=== PATIENT | male | born 1995 | race African-American/Black ===

== ENCOUNTER 2016-12-13 19:12 | Inpatient (IN) | payer MEDICAID ==
[~2016-12-13] VITALS: Ht 190.5 cm; Wt 134.0 kg
[~2016-12-13 19:12] MED LIST: BENZ1TAB10 PO; CLOZ100 PO; DIVA500T69 PO; FLUO-191 PO; TOPI100 PO
[2016-12-13 19:51] LABS: BASOPHILS % (AUTO) 0.6 % (0.0-2.0); EOSINOPHILS % (AUTO) 2.4 % (1.0-6.0); HEMATOCRIT 46.8 % (41-53); HEMOGLOBIN 15.2 g/dL (13.5-17.5); LYMPHOCYTES # (AUTO) 3.6 K/uL (1.0-4.8); LYMPHOCYTES % (AUTO) 34.4 % (22.0-44.0); MEAN CORPUSCULAR HEMOGLOBIN 29.1 pg (26.0-34.0); MEAN CORPUSCULAR HGB CONC 32.4 G/dL (31.0-37.0); MEAN CORPUSCULAR VOLUME 90 fL (80-100); MONOCYTES # (AUTO) 1.2 K/uL (0.1-1.0); MONOCYTES % (AUTO) 11.7 % (2.0-9.0); NEUTROPHILS # (AUTO) 5.3 K/uL (1.8-7.7); NEUTROPHILS % (AUTO) 50.9 % (40.0-70.0); PLATELET COUNT (AUTO) 435 K/uL (150-450); RED BLOOD CELL COUNT(AUTO) 5.22 MIL/uL (4.50-5.90); RED CELL DISTRIBUTION WIDTH 14.4 % (11.5-14.5); WHITE BLOOD COUNT (AUTO) 10.5 K/uL (4.5-11.0)
[2016-12-13 20:05] LABS: ANION GAP 9 mmol/L (8-16); CALCIUM, TOTAL 9.5 mg/dL (8.8-10.5); CARBON DIOXIDE 28 mmol/L (22-29); CHLORIDE 105 mmol/L (98-107); CREATININE 0.97 mg/dL (0.60-1.30); GLOMERULAR FILTR. RATE CALC > 60 mL/min (>60); POTASSIUM 3.4 mmol/L (3.5-5.1); SODIUM SERUM 142 mmol/L (136-145); UREA NITROGEN, BLOOD 13 mg/dL (7-18)
[2016-12-13 20:11] LABS: ALANINE AMINOTRANSFERASE 44 U/L (12-78); ALBUMIN 3.5 g/dL (3.4-5.0); ASPARTATE AMINOTRANSFERASE 32 U/L (15-37); BILIRUBIN,TOTAL 0.2 mg/dL (0.1-1.0); TOTAL PROTEIN, SERUM 7.5 g/dL (6.4-8.2); VALPROIC ACID 3 mcg/mL (50-100)
[2016-12-13] MEDS ORDERED: DiphenhydrAMINE HCL 50 MG/ML VIAL IM ONE (22:30)
[2016-12-13] MEDS ORDERED: LORazepam 2 MG/ML VIAL IM ONE (22:30)
[2016-12-14] MEDS ORDERED: QUEtiapine FUMARATE 100 MG TABLET PO PRN (01:30)
[2016-12-14] MEDS: TOPIRAMATE 100 MG TABLET PO SCH ×2 (08:36→16:24)
[2016-12-14] MEDS: FLUoxetine HCL 20 MG CAPSULE PO SCH (08:36)
[2016-12-14] MEDS: BENZTROPINE MESYLATE 1 MG TABLET PO SCH ×2 (08:36→20:24)
[2016-12-14] MEDS ORDERED: INFLUENZA VIRUS VACCINE QVS 2016-17 (3YR+)/PF 60 MCG/0.5 ML SYRINGE IM ONE (13:30)
[2016-12-14] MEDS ORDERED: PNEUMOCOCCAL VACCINE POLYVALENT 0.5 ML VIAL [PPSV23] IM ONE (13:30)
[2016-12-14 13:34] VITALS: BP 121/84
[2016-12-14] MEDS ORDERED: HYDROCORTISONE 0.5% 30 GM CREAM TP PRN (14:45)
[2016-12-14 18:38] VITALS: BP 125/86
[2016-12-14] MEDS: LORazepam 2 MG TABLET PO PRN (18:53)
[2016-12-14] MEDS: DIVALPROEX SODIUM 500 MG ER TABLET PO SCH (20:24)
[2016-12-14] MEDS: CloZAPine 100 MG TABLET PO SCH (20:24)
[2016-12-15 07:24] LABS: BASOPHILS # (AUTO) 0.06 K/uL (0.00-0.20); BASOPHILS % (AUTO) 0.8 % (0.0-2.0); EOSINOPHILS % (AUTO) 4.37 % (1.0-6.0); HEMATOCRIT 40.7 % (41-53); HEMOGLOBIN 13.5 g/dL (13.5-17.5); LYMPHOCYTES # (AUTO) 2.7 K/uL (1.0-4.8); MEAN CORPUSCULAR HEMOGLOBIN 29.6 pg (26.0-34.0); MEAN CORPUSCULAR HGB CONC 33.2 G/dL (31.0-37.0); MEAN CORPUSCULAR VOLUME 89 fL (80-100); MONOCYTES # (AUTO) 0.7 K/uL (0.1-1.0); MONOCYTES % (AUTO) 10.3 % (2.0-9.0); NEUTROPHILS # (AUTO) 3.1 K/uL (1.8-7.7); NEUTROPHILS % (AUTO) 45.6 % (40.0-70.0); PLATELET COUNT (AUTO) 337 K/uL (150-450); RED BLOOD CELL COUNT(AUTO) 4.58 MIL/uL (4.50-5.90); RED CELL DISTRIBUTION WIDTH 14.3 % (11.5-14.5); WHITE BLOOD COUNT (AUTO) 6.9 K/uL (4.5-11.0)
[2016-12-15 08:00] VITALS: BP 128/87
[2016-12-15] MEDS ORDERED: PETROLATUM,WHITE 71 GM JELLY TP PRN (08:15)
[2016-12-15] MEDS ORDERED: CloNIDine HCL 0.1 MG TABLET PO PRN (08:15)
[2016-12-15] MEDS ORDERED: POTASSIUM CHLORIDE 20 MEQ ER TABLET PO ONE (08:15)
[2016-12-15] MEDS ORDERED: IBUPROFEN 600 MG TABLET PO PRN (08:15)
[2016-12-15] MEDS ORDERED: ONDANSETRON HCL 4 MG TABLET PO PRN (08:15)
[2016-12-15] MEDS ORDERED: ALBUTEROL SULFATE HFA 90 MCG/PUFF 8 GM INHALER IH PRN (08:15)
[2016-12-15] MEDS ORDERED: MAG HYDROX/AL HYDROX/SIMETH ES 30 ML SUSPENSION UDCUP PO PRN (08:15)
[2016-12-15] MEDS ORDERED: ACETAMINOPHEN 325 MG TABLET PO PRN (08:15)
[2016-12-15] MEDS ORDERED: BACITRACIN 28.4 GM OINTMENT TP PRN (08:15)
[2016-12-15] MEDS ORDERED: MAGNESIUM HYDROXIDE SUSPENSION 30 ML UDCUP PO PRN (08:15)
[2016-12-15] MEDS ORDERED: BENZOCAINE/MENTHOL LOZENGE [8 LOZENGES/PACKET] MM PRN (08:15)
[2016-12-15] MEDS ORDERED: LOPERAMIDE HCL 2 MG CAPSULE PO PRN (08:15)
[2016-12-15] MEDS: FLUoxetine HCL 20 MG CAPSULE PO SCH (09:35)
[2016-12-15] MEDS: BENZTROPINE MESYLATE 1 MG TABLET PO SCH ×2 (09:35→20:28)
[2016-12-15] MEDS: TOPIRAMATE 100 MG TABLET PO SCH ×2 (09:36→17:40)
[2016-12-15] MEDS: CloZAPine 100 MG TABLET PO SCH (20:27)
[2016-12-15] MEDS: DIVALPROEX SODIUM 500 MG ER TABLET PO SCH (20:27)
[2016-12-16 07:20] LABS: CHOL/HDL RATIO 4.6 (4.2-7.3); POTASSIUM 3.6 mmol/L (3.5-5.1); THYROID STIMULATING HORMONE 0.38 uIU/mL (0.36-3.74)
[2016-12-16 08:00] VITALS: BP 128/74
[2016-12-16] MEDS: FLUoxetine HCL 20 MG CAPSULE PO SCH (09:18)
[2016-12-16] MEDS: TOPIRAMATE 100 MG TABLET PO SCH ×2 (09:19→16:30)
[2016-12-16] MEDS: BENZTROPINE MESYLATE 1 MG TABLET PO SCH ×2 (09:19→20:34)
[2016-12-16 16:00] VITALS: BP 113/85
[2016-12-16] MEDS: DIVALPROEX SODIUM 500 MG ER TABLET PO SCH (20:34)
[2016-12-16] MEDS: CloZAPine 100 MG TABLET PO SCH (20:34)
[2016-12-17 08:37] VITALS: BP 116/65
[2016-12-17] MEDS: FLUoxetine HCL 20 MG CAPSULE PO SCH (09:56)
[2016-12-17] MEDS: BENZTROPINE MESYLATE 1 MG TABLET PO SCH ×2 (09:56→20:18)
[2016-12-17] MEDS: TOPIRAMATE 100 MG TABLET PO SCH ×2 (09:57→16:24)
[2016-12-17 16:00] VITALS: BP 127/71
[2016-12-17] MEDS: CloZAPine 100 MG TABLET PO SCH (20:18)
[2016-12-17] MEDS: DIVALPROEX SODIUM 500 MG ER TABLET PO SCH (20:20)
[2016-12-18 08:00] VITALS: BP 126/73
[2016-12-18] MEDS: FLUoxetine HCL 20 MG CAPSULE PO SCH (08:49)
[2016-12-18] MEDS: BENZTROPINE MESYLATE 1 MG TABLET PO SCH ×2 (08:49→21:59)
[2016-12-18] MEDS: TOPIRAMATE 100 MG TABLET PO SCH ×2 (08:50→16:08)
[2016-12-18 16:00] VITALS: BP 129/78
[2016-12-18] MEDS: DIVALPROEX SODIUM 500 MG ER TABLET PO SCH (21:59)
[2016-12-18] MEDS: CloZAPine 100 MG TABLET PO SCH (21:59)
[2016-12-19] MEDS: BENZTROPINE MESYLATE 1 MG TABLET PO SCH ×2 (09:28→20:16)
[2016-12-19] MEDS: FLUoxetine HCL 20 MG CAPSULE PO SCH (09:29)
[2016-12-19] MEDS: TOPIRAMATE 100 MG TABLET PO SCH ×2 (09:29→17:14)
[2016-12-19] MEDS: NALTREXONE HCL 50 MG TABLET PO SCH (09:29)
[2016-12-19 11:40] VITALS: BP 126/70
[2016-12-19 16:52] VITALS: BP 126/65
[2016-12-19] MEDS: LORazepam 2 MG TABLET PO PRN (19:01)
[2016-12-19] MEDS: CloZAPine 100 MG TABLET PO SCH (20:16)
[2016-12-19] MEDS: DIVALPROEX SODIUM 500 MG ER TABLET PO SCH (20:16)
[2016-12-20] MEDS: NALTREXONE HCL 50 MG TABLET PO SCH (11:37)
[2016-12-20] MEDS: TOPIRAMATE 100 MG TABLET PO SCH ×2 (11:37→16:16)
[2016-12-20] MEDS: BENZTROPINE MESYLATE 1 MG TABLET PO SCH ×2 (11:37→20:07)
[2016-12-20] MEDS: FLUoxetine HCL 20 MG CAPSULE PO SCH (11:38)
[2016-12-20 17:02] VITALS: BP 102/58
[2016-12-20] MEDS: DIVALPROEX SODIUM 500 MG ER TABLET PO SCH (20:06)
[2016-12-20] MEDS: CloZAPine 100 MG TABLET PO SCH (20:07)
[2016-12-20] MEDS: ZOLPIDEM TARTRATE 10 MG TABLET PO PRN (23:37)
[2016-12-20] MEDS: LORazepam 2 MG TABLET PO PRN (23:38)
[2016-12-21] MEDS: FLUoxetine HCL 20 MG CAPSULE PO SCH (08:55)
[2016-12-21] MEDS: BENZTROPINE MESYLATE 1 MG TABLET PO SCH ×2 (08:55→21:32)
[2016-12-21] MEDS: NALTREXONE HCL 50 MG TABLET PO SCH (08:55)
[2016-12-21] MEDS: TOPIRAMATE 100 MG TABLET PO SCH ×2 (08:55→17:30)
[2016-12-21] MEDS: LORazepam 2 MG TABLET PO PRN (08:58)
[2016-12-21 09:26] VITALS: BP 126/67
[2016-12-21 16:11] VITALS: BP 129/72
[2016-12-21] MEDS: CloZAPine 100 MG TABLET PO SCH (21:31)
[2016-12-21] MEDS: DIVALPROEX SODIUM 500 MG ER TABLET PO SCH (21:32)
[2016-12-22 08:42] VITALS: BP 132/95
[2016-12-22] MEDS: TOPIRAMATE 100 MG TABLET PO SCH ×2 (09:49→16:34)
[2016-12-22] MEDS: NALTREXONE HCL 50 MG TABLET PO SCH (09:50)
[2016-12-22] MEDS: BENZTROPINE MESYLATE 1 MG TABLET PO SCH ×2 (09:50→21:27)
[2016-12-22] MEDS: FLUoxetine HCL 20 MG CAPSULE PO SCH (09:50)
[2016-12-22 16:00] VITALS: BP 126/90
[2016-12-22] MEDS: DIVALPROEX SODIUM 500 MG ER TABLET PO SCH (21:27)
[2016-12-22] MEDS: CloZAPine 100 MG TABLET PO SCH (21:27)
[2016-12-22] MEDS: ZOLPIDEM TARTRATE 10 MG TABLET PO PRN (23:00)
[2016-12-23] MEDS: FLUoxetine HCL 20 MG CAPSULE PO SCH (08:18)
[2016-12-23] MEDS: TOPIRAMATE 100 MG TABLET PO SCH ×2 (08:19→18:23)
[2016-12-23] MEDS: NALTREXONE HCL 50 MG TABLET PO SCH (08:19)
[2016-12-23] MEDS: BENZTROPINE MESYLATE 1 MG TABLET PO SCH ×2 (08:19→20:54)
[2016-12-23 08:41] VITALS: BP 119/74
[2016-12-23 14:46] LABS: CLOZAPINE 702 ng/mL (350-650); CLOZAPINE & NORCLOZAPINE 845 ng/mL; NORCLOZAPINE 143 ng/mL (Not Estab.)
[2016-12-23] MEDS ORDERED: TOPI100 PO (15:40)
[2016-12-23] MEDS ORDERED: BENZ1TAB10 PO (15:40)
[2016-12-23] MEDS ORDERED: CLOZ100 PO (15:40)
[2016-12-23] MEDS ORDERED: FLUO-191 PO (15:40)
[2016-12-23] MEDS ORDERED: NALT50 PO (15:40)
[2016-12-23] MEDS ORDERED: DIVA500T52 PO (15:40)
[2016-12-23] MEDS: DIVALPROEX SODIUM 500 MG ER TABLET PO SCH (20:54)
[2016-12-23] MEDS: CloZAPine 100 MG TABLET PO SCH (20:54)
[2016-12-24 08:30] VITALS: BP 136/76
[2016-12-24] MEDS: NALTREXONE HCL 50 MG TABLET PO SCH (09:18)
[2016-12-24] MEDS: TOPIRAMATE 100 MG TABLET PO SCH (09:18)
[2016-12-24] MEDS: FLUoxetine HCL 20 MG CAPSULE PO SCH (09:18)
[2016-12-24] MEDS: BENZTROPINE MESYLATE 1 MG TABLET PO SCH (09:18)
[2016-12-25 12:36] LABS: FLUOXETINE (PROZAC) LEVEL 320 ng/mL (91-302); NORFLUOXETINE LEVEL 146 ng/mL (72-258)
== END 2016-12-24 14:06 | disposition home or self-care (01) | DRG 750 ==
LOC: EMS 19:14 → 3EI 12-14 11:57 → 3EC 12-14 12:28
PROVIDERS: ATTEND Psychiatry & Neurology Psychiatry
DX: F25.0 Schizoaffective disorder, bipolar type (principal); R45.851 Suicidal ideations; R45.850 Homicidal ideations; I10 Essential (primary) hypertension; F17.210 Nicotine dependence, cigarettes, uncomplicated; L20.9 Atopic dermatitis, unspecified; K59.00 Constipation, unspecified; F15.10 Other stimulant abuse, uncomplicated; R45.87 Impulsiveness; F12.90 Cannabis use, unspecified, uncomplicated; E87.6 Hypokalemia; E78.00 Pure hypercholesterolemia, unspecified; E66.9 Obesity, unspecified; Z91.19 Patient's noncompliance with other medical treatment and regimen; Z91.013 Allergy to seafood; Z91.018 Allergy to other foods; Z79.899 Other long term (current) drug therapy; Z88.8 Allergy status to other drugs, medicaments and biological substances; Z98.890 Other specified postprocedural states; Z71.6 Tobacco abuse counseling; Z68.36 Body mass index [BMI] 36.0-36.9, adult; Z28.21 Immunization not carried out because of patient refusal
CPT/HCPCS: 80159; 80332; 82306; 84132; 84443; 96372; 99285; 99406; G0480; J1200; J2060

== ENCOUNTER 2016-12-24 18:59 | Inpatient (IN) | payer MEDICAID ==
[~2016-12-24] VITALS: Ht 190.5 cm; Wt 146.7 kg
[~2016-12-24 18:59] MED LIST changes: +DIVA500T52 PO; +NALT50 PO
[2016-12-24 19:44] LABS: BASOPHILS % (AUTO) 0.6 % (0.0-2.0); EOSINOPHILS % (AUTO) 0.3 % (1.0-6.0); HEMATOCRIT 43.3 % (41-53); LYMPHOCYTES # (AUTO) 2.2 K/uL (1.0-4.8); LYMPHOCYTES % (AUTO) 24.1 % (22.0-44.0); MEAN CORPUSCULAR HEMOGLOBIN 28.7 pg (26.0-34.0); MEAN CORPUSCULAR HGB CONC 32.2 G/dL (31.0-37.0); MEAN CORPUSCULAR VOLUME 89 fL (80-100); MONOCYTES # (AUTO) 0.7 K/uL (0.1-1.0); MONOCYTES % (AUTO) 7.3 % (2.0-9.0); NEUTROPHILS # (AUTO) 6.1 K/uL (1.8-7.7); NEUTROPHILS % (AUTO) 67.7 % (40.0-70.0); PLATELET COUNT (AUTO) 305 K/uL (150-450); RED BLOOD CELL COUNT(AUTO) 4.86 MIL/uL (4.50-5.90); RED CELL DISTRIBUTION WIDTH 13.5 % (11.5-14.5)
[2016-12-24 19:50] LABS: ANION GAP 13 mmol/L (8-16); CARBON DIOXIDE 22 mmol/L (22-29); CHLORIDE 104 mmol/L (98-107); CREATININE 0.98 mg/dL (0.60-1.30); GLOMERULAR FILTR. RATE CALC > 60 mL/min (>60); POTASSIUM 4.1 mmol/L (3.5-5.1); SODIUM SERUM 139 mmol/L (136-145); UREA NITROGEN, BLOOD 12 mg/dL (7-18)
[2016-12-24 19:51] LABS: CALCIUM, TOTAL 9.2 mg/dL (8.8-10.5)
[2016-12-24 19:57] LABS: ALANINE AMINOTRANSFERASE 32 U/L (12-78); ALBUMIN 3.7 g/dL (3.4-5.0); ASPARTATE AMINOTRANSFERASE 23 U/L (15-37); BILIRUBIN,TOTAL 0.2 mg/dL (0.1-1.0); TOTAL PROTEIN, SERUM 7.6 g/dL (6.4-8.2); VALPROIC ACID 94 mcg/mL (50-100)
[2016-12-24] MEDS ORDERED: LORazepam 2 MG/ML VIAL IM ONE (20:45)
[2016-12-24] MEDS ORDERED: DiphenhydrAMINE HCL 50 MG/ML VIAL IM ONE (20:45)
[2016-12-24] MEDS ORDERED: ZIPRASIDONE MESYLATE 20 MG/VIAL IM ONE (20:45)
[2016-12-24] MEDS ORDERED: CloZAPine 100 MG TABLET PO SCH (21:00)
[2016-12-24] MEDS: DIVALPROEX SODIUM 500 MG ER TABLET PO SCH (21:36)
[2016-12-24] MEDS: TOPIRAMATE 100 MG TABLET PO SCH (21:36)
[2016-12-24 21:54] LABS: APPEARANCE,URINE CLEAR (CLEAR); GLUCOSE, URINE (UA) NEGATIVE (NEGATIVE); KETONES,URINE NEGATIVE (NEGATIVE); LEUKOCYTE ESTERASE ,URINE NEGATIVE (NEGATIVE); OCCULT BLOOD,URINE NEGATIVE (NEGATIVE); PH,URINE 6.5 (5.0-8.0); PROTEIN,URINE NEGATIVE (NEGATIVE)
[2016-12-24 21:57] LABS: ADD UA MICROSCOPIC NO
[2016-12-24 23:21] VITALS: BP 126/85
[2016-12-24] MEDS ORDERED: PNEUMOCOCCAL VACCINE POLYVALENT 0.5 ML VIAL [PPSV23] IM ONE (23:45)
[2016-12-25 08:54] VITALS: BP 117/63
[2016-12-25] MEDS ORDERED: BENZOCAINE/MENTHOL LOZENGE [8 LOZENGES/PACKET] MM PRN (09:30)
[2016-12-25] MEDS ORDERED: ONDANSETRON HCL 4 MG TABLET PO PRN (09:30)
[2016-12-25] MEDS ORDERED: MAGNESIUM HYDROXIDE SUSPENSION 30 ML UDCUP PO PRN (09:30)
[2016-12-25] MEDS ORDERED: IBUPROFEN 600 MG TABLET PO PRN (09:30)
[2016-12-25] MEDS ORDERED: ALBUTEROL SULFATE HFA 90 MCG/PUFF 8 GM INHALER IH PRN (09:30)
[2016-12-25] MEDS ORDERED: MAG HYDROX/AL HYDROX/SIMETH ES 30 ML SUSPENSION UDCUP PO PRN (09:30)
[2016-12-25] MEDS ORDERED: ACETAMINOPHEN 325 MG TABLET PO PRN (09:30)
[2016-12-25] MEDS ORDERED: BACITRACIN 28.4 GM OINTMENT TP PRN (09:30)
[2016-12-25] MEDS ORDERED: PETROLATUM,WHITE 71 GM JELLY TP PRN (09:30)
[2016-12-25] MEDS ORDERED: CloNIDine HCL 0.1 MG TABLET PO PRN (09:30)
[2016-12-25] MEDS ORDERED: LOPERAMIDE HCL 2 MG CAPSULE PO PRN (09:30)
[2016-12-25] MEDS: FLUoxetine HCL 20 MG CAPSULE PO SCH (10:09)
[2016-12-25] MEDS: TOPIRAMATE 100 MG TABLET PO SCH ×2 (10:09→17:57)
[2016-12-25 16:00] VITALS: BP 109/60
[2016-12-25] MEDS ORDERED: CloZAPine 100 MG TABLET PO SCH (21:00)
[2016-12-25] MEDS: CloZAPine 100 MG TABLET PO SCH (22:09)
[2016-12-25] MEDS: DIVALPROEX SODIUM 500 MG ER TABLET PO SCH (22:09)
[2016-12-26 09:15] VITALS: BP 134/68
[2016-12-26] MEDS: TOPIRAMATE 100 MG TABLET PO SCH ×2 (09:43→16:09)
[2016-12-26] MEDS: CHOLECALCIFEROL (VIT D3) 1,000 UNITS TABLET PO SCH (09:43)
[2016-12-26] MEDS: FLUoxetine HCL 20 MG CAPSULE PO SCH (09:43)
[2016-12-26 17:22] VITALS: BP 126/79
[2016-12-26] MEDS: CloZAPine 100 MG TABLET PO SCH (20:29)
[2016-12-26] MEDS: DIVALPROEX SODIUM 500 MG ER TABLET PO SCH (20:29)
[2016-12-26] MEDS: ZOLPIDEM TARTRATE 10 MG TABLET PO PRN (23:06)
[2016-12-27 08:24] VITALS: BP 108/64
[2016-12-27] MEDS: FLUoxetine HCL 20 MG CAPSULE PO SCH (08:43)
[2016-12-27] MEDS: CHOLECALCIFEROL (VIT D3) 1,000 UNITS TABLET PO SCH (08:43)
[2016-12-27] MEDS: TOPIRAMATE 100 MG TABLET PO SCH ×2 (08:44→16:20)
[2016-12-27] MEDS ORDERED: TUBERCULIN, PURIFIED PROTEIN DERIVATIVE 5 TU/0.1 ML SYG ID ONE (14:30)
[2016-12-27] MEDS: QUEtiapine FUMARATE 100 MG TABLET PO PRN (19:23)
[2016-12-27] MEDS: LORazepam 2 MG TABLET PO PRN (19:23)
[2016-12-27 21:13] VITALS: BP 142/96
[2016-12-27] MEDS: CloZAPine 100 MG TABLET PO SCH (21:15)
[2016-12-27] MEDS: DIVALPROEX SODIUM 500 MG ER TABLET PO SCH (21:15)
[2016-12-28 09:00] VITALS: BP 123/61
[2016-12-28] MEDS: FLUoxetine HCL 20 MG CAPSULE PO SCH (10:04)
[2016-12-28] MEDS: CHOLECALCIFEROL (VIT D3) 1,000 UNITS TABLET PO SCH (10:05)
[2016-12-28] MEDS: TOPIRAMATE 100 MG TABLET PO SCH ×2 (10:05→16:36)
[2016-12-28 17:07] VITALS: BP 118/68
[2016-12-28] MEDS: DIVALPROEX SODIUM 500 MG ER TABLET PO SCH (20:23)
[2016-12-28] MEDS: CloZAPine 100 MG TABLET PO SCH (20:24)
[2016-12-29 01:18] VITALS: BP 129/73
[2016-12-29 08:50] VITALS: BP 113/78
[2016-12-29] MEDS: CHOLECALCIFEROL (VIT D3) 1,000 UNITS TABLET PO SCH (09:43)
[2016-12-29] MEDS: FLUoxetine HCL 20 MG CAPSULE PO SCH (09:43)
[2016-12-29] MEDS: TOPIRAMATE 100 MG TABLET PO SCH ×2 (09:44→16:45)
[2016-12-29 16:36] VITALS: BP 108/78
[2016-12-29] MEDS: DIVALPROEX SODIUM 500 MG ER TABLET PO SCH (20:34)
[2016-12-29] MEDS: CloZAPine 100 MG TABLET PO SCH (20:34)
[2016-12-29] MEDS: LORazepam 2 MG TABLET PO PRN (21:36)
[2016-12-30] MEDS: TOPIRAMATE 100 MG TABLET PO SCH ×2 (09:36→16:27)
[2016-12-30] MEDS: CHOLECALCIFEROL (VIT D3) 1,000 UNITS TABLET PO SCH (09:36)
[2016-12-30] MEDS: FLUoxetine HCL 20 MG CAPSULE PO SCH (09:36)
[2016-12-30 16:20] VITALS: BP 137/90
[2016-12-30] MEDS: LORazepam 2 MG TABLET PO PRN (18:56)
[2016-12-30] MEDS: DIVALPROEX SODIUM 500 MG ER TABLET PO SCH (20:29)
[2016-12-30] MEDS: CloZAPine 100 MG TABLET PO SCH (20:29)
[2016-12-31 08:00] VITALS: BP 107/68
[2016-12-31] MEDS: CHOLECALCIFEROL (VIT D3) 1,000 UNITS TABLET PO SCH (10:00)
[2016-12-31] MEDS: FLUoxetine HCL 20 MG CAPSULE PO SCH (10:00)
[2016-12-31] MEDS: TOPIRAMATE 100 MG TABLET PO SCH ×2 (10:00→16:39)
[2016-12-31 18:00] VITALS: BP 127/74
[2016-12-31] MEDS: CloZAPine 100 MG TABLET PO SCH (22:11)
[2016-12-31] MEDS: DIVALPROEX SODIUM 500 MG ER TABLET PO SCH (22:11)
[2017-01-01] MEDS: FLUoxetine HCL 20 MG CAPSULE PO SCH (11:41)
[2017-01-01] MEDS: CHOLECALCIFEROL (VIT D3) 1,000 UNITS TABLET PO SCH (11:41)
[2017-01-01] MEDS: TOPIRAMATE 100 MG TABLET PO SCH ×2 (11:41→17:15)
[2017-01-01 14:06] VITALS: BP 130/84
[2017-01-01 16:30] VITALS: BP 132/85
[2017-01-01] MEDS: LORazepam 2 MG TABLET PO PRN (17:38)
[2017-01-01] MEDS: QUEtiapine FUMARATE 100 MG TABLET PO PRN (17:38)
[2017-01-01] MEDS: ZOLPIDEM TARTRATE 10 MG TABLET PO PRN (21:51)
[2017-01-01] MEDS: CloZAPine 100 MG TABLET PO SCH (21:51)
[2017-01-01] MEDS: DIVALPROEX SODIUM 500 MG ER TABLET PO SCH (21:52)
[2017-01-02 00:13] VITALS: BP 138/91
[2017-01-02] MEDS: QUEtiapine FUMARATE 100 MG TABLET PO PRN (00:29)
[2017-01-02 09:00] VITALS: BP 144/89
[2017-01-02] MEDS: TOPIRAMATE 100 MG TABLET PO SCH ×2 (09:50→16:41)
[2017-01-02] MEDS: CHOLECALCIFEROL (VIT D3) 1,000 UNITS TABLET PO SCH (09:50)
[2017-01-02] MEDS: FLUoxetine HCL 20 MG CAPSULE PO SCH (09:50)
[2017-01-02 11:08] LABS: FLUOXETINE (PROZAC) LEVEL 618 ng/mL (91-302); NORFLUOXETINE LEVEL 243 ng/mL (72-258)
[2017-01-02 17:10] VITALS: BP 130/88
[2017-01-02] MEDS: CloZAPine 100 MG TABLET PO SCH (20:27)
[2017-01-02] MEDS: DIVALPROEX SODIUM 500 MG ER TABLET PO SCH (20:27)
[2017-01-03] MEDS: TOPIRAMATE 100 MG TABLET PO SCH ×2 (07:55→16:13)
[2017-01-03] MEDS: FLUoxetine HCL 20 MG CAPSULE PO SCH (07:55)
[2017-01-03] MEDS: CHOLECALCIFEROL (VIT D3) 1,000 UNITS TABLET PO SCH (07:55)
[2017-01-03 09:00] VITALS: BP 147/80
[2017-01-03] MEDS: DIVALPROEX SODIUM 500 MG ER TABLET PO SCH (20:26)
[2017-01-03] MEDS: CloZAPine 100 MG TABLET PO SCH (20:27)
[2017-01-03 20:37] VITALS: BP 137/41
[2017-01-03] MEDS: ZOLPIDEM TARTRATE 10 MG TABLET PO PRN (22:38)
[2017-01-04 08:00] VITALS: BP 138/87
[2017-01-04] MEDS: TOPIRAMATE 100 MG TABLET PO SCH ×2 (09:55→16:25)
[2017-01-04] MEDS: FLUoxetine HCL 20 MG CAPSULE PO SCH (09:55)
[2017-01-04] MEDS: CHOLECALCIFEROL (VIT D3) 1,000 UNITS TABLET PO SCH (09:55)
[2017-01-04 16:21] VITALS: BP 131/82
[2017-01-04] MEDS: CloZAPine 100 MG TABLET PO SCH (20:01)
[2017-01-04] MEDS: DIVALPROEX SODIUM 500 MG ER TABLET PO SCH (20:01)
[2017-01-04] MEDS: LORazepam 2 MG TABLET PO PRN (21:31)
[2017-01-04] MEDS ORDERED: DiphenhydrAMINE HCL 50 MG/ML VIAL IM ONE (22:45)
[2017-01-04] MEDS ORDERED: HALOPERIDOL LACTATE 5 MG/ML VIAL IM ONE (22:45)
[2017-01-04] MEDS ORDERED: LORazepam 2 MG/ML VIAL IM ONE (22:45)
[2017-01-05 08:00] VITALS: BP 141/90
[2017-01-05] MEDS: CHOLECALCIFEROL (VIT D3) 1,000 UNITS TABLET PO SCH (10:03)
[2017-01-05] MEDS: FLUoxetine HCL 20 MG CAPSULE PO SCH (10:03)
[2017-01-05] MEDS: TOPIRAMATE 100 MG TABLET PO SCH ×2 (10:03→17:01)
[2017-01-05 19:57] VITALS: BP 131/84
[2017-01-05] MEDS: CloZAPine 100 MG TABLET PO SCH (21:45)
[2017-01-05] MEDS: DIVALPROEX SODIUM 500 MG ER TABLET PO SCH (21:45)
[2017-01-06] MEDS: TOPIRAMATE 100 MG TABLET PO SCH ×2 (09:21→16:38)
[2017-01-06] MEDS: FLUoxetine HCL 20 MG CAPSULE PO SCH (09:21)
[2017-01-06] MEDS: CHOLECALCIFEROL (VIT D3) 1,000 UNITS TABLET PO SCH (09:22)
[2017-01-06 09:33] VITALS: BP 130/87
[2017-01-06 18:55] VITALS: BP 129/88
[2017-01-06] MEDS: DIVALPROEX SODIUM 500 MG ER TABLET PO SCH (21:00)
[2017-01-06] MEDS: CloZAPine 100 MG TABLET PO SCH (21:00)
[2017-01-07] MEDS: TOPIRAMATE 100 MG TABLET PO SCH ×2 (09:04→17:10)
[2017-01-07] MEDS: FLUoxetine HCL 20 MG CAPSULE PO SCH (09:04)
[2017-01-07] MEDS: CHOLECALCIFEROL (VIT D3) 1,000 UNITS TABLET PO SCH (09:04)
[2017-01-07 17:48] VITALS: BP 145/92
[2017-01-07] MEDS: LORazepam 2 MG TABLET PO PRN (19:03)
[2017-01-07] MEDS: QUEtiapine FUMARATE 100 MG TABLET PO PRN (19:03)
[2017-01-07] MEDS: CloZAPine 100 MG TABLET PO SCH (21:45)
[2017-01-07] MEDS: DIVALPROEX SODIUM 500 MG ER TABLET PO SCH (21:45)
[2017-01-08] MEDS: CHOLECALCIFEROL (VIT D3) 1,000 UNITS TABLET PO SCH (08:37)
[2017-01-08] MEDS: TOPIRAMATE 100 MG TABLET PO SCH ×2 (08:37→16:32)
[2017-01-08] MEDS: FLUoxetine HCL 20 MG CAPSULE PO SCH (08:40)
[2017-01-08 09:00] VITALS: BP 133/74
[2017-01-08] MEDS: LORazepam 2 MG TABLET PO PRN (16:58)
[2017-01-08] MEDS: QUEtiapine FUMARATE 100 MG TABLET PO PRN ×2 (16:58→23:39)
[2017-01-08 19:43] VITALS: BP 132/70
[2017-01-08] MEDS: DIVALPROEX SODIUM 500 MG ER TABLET PO SCH (21:47)
[2017-01-08] MEDS: CloZAPine 100 MG TABLET PO SCH (21:48)
[2017-01-08] MEDS: ZOLPIDEM TARTRATE 10 MG TABLET PO PRN (23:59)
[2017-01-09 04:10] VITALS: BP 130/72
[2017-01-09] MEDS: LORazepam 2 MG TABLET PO PRN ×2 (04:13→17:29)
[2017-01-09 08:30] VITALS: BP 129/78
[2017-01-09] MEDS: CHOLECALCIFEROL (VIT D3) 1,000 UNITS TABLET PO SCH (08:53)
[2017-01-09] MEDS: TOPIRAMATE 100 MG TABLET PO SCH ×2 (08:53→16:10)
[2017-01-09] MEDS: FLUoxetine HCL 20 MG CAPSULE PO SCH (08:53)
[2017-01-09] MEDS: NALTREXONE HCL 50 MG TABLET PO SCH (08:53)
[2017-01-09 16:30] VITALS: BP 136/82
[2017-01-09] MEDS: QUEtiapine FUMARATE 100 MG TABLET PO PRN (17:29)
[2017-01-09] MEDS: DIVALPROEX SODIUM 500 MG ER TABLET PO SCH (21:41)
[2017-01-09] MEDS: CloZAPine 100 MG TABLET PO SCH (21:42)
[2017-01-09] MEDS: ZOLPIDEM TARTRATE 10 MG TABLET PO PRN (21:47)
[2017-01-10 08:05] VITALS: BP 128/77
[2017-01-10] MEDS: FLUoxetine HCL 20 MG CAPSULE PO SCH (11:06)
[2017-01-10] MEDS: TOPIRAMATE 100 MG TABLET PO SCH ×2 (11:07→16:23)
[2017-01-10] MEDS: CHOLECALCIFEROL (VIT D3) 1,000 UNITS TABLET PO SCH (11:07)
[2017-01-10] MEDS: NALTREXONE HCL 50 MG TABLET PO SCH (11:07)
[2017-01-10 11:17] LABS: CLOZAPINE 482 ng/mL (350-650); CLOZAPINE & NORCLOZAPINE 626 ng/mL; NORCLOZAPINE 144 ng/mL (Not Estab.)
[2017-01-10 16:22] VITALS: BP 122/70
[2017-01-10] MEDS: DIVALPROEX SODIUM 500 MG ER TABLET PO SCH (22:26)
[2017-01-10] MEDS: CloZAPine 100 MG TABLET PO SCH (22:27)
[2017-01-11] MEDS: TOPIRAMATE 100 MG TABLET PO SCH ×2 (08:10→16:02)
[2017-01-11] MEDS: CHOLECALCIFEROL (VIT D3) 1,000 UNITS TABLET PO SCH (08:10)
[2017-01-11] MEDS: FLUoxetine HCL 20 MG CAPSULE PO SCH (08:10)
[2017-01-11] MEDS: NALTREXONE HCL 50 MG TABLET PO SCH (08:10)
[2017-01-11 09:15] VITALS: BP 100/52
[2017-01-11 18:34] VITALS: BP 120/62
[2017-01-11] MEDS: CloZAPine 100 MG TABLET PO SCH (20:59)
[2017-01-11] MEDS: DIVALPROEX SODIUM 500 MG ER TABLET PO SCH (20:59)
[2017-01-12 08:05] VITALS: BP 136/77
[2017-01-12] MEDS: FLUoxetine HCL 20 MG CAPSULE PO SCH (08:23)
[2017-01-12] MEDS: TOPIRAMATE 100 MG TABLET PO SCH ×2 (08:23→16:39)
[2017-01-12] MEDS: CHOLECALCIFEROL (VIT D3) 1,000 UNITS TABLET PO SCH (08:24)
[2017-01-12] MEDS: NALTREXONE HCL 50 MG TABLET PO SCH (08:24)
[2017-01-12 17:26] VITALS: BP 127/95
[2017-01-12] MEDS: CloZAPine 100 MG TABLET PO SCH (20:32)
[2017-01-12] MEDS: DIVALPROEX SODIUM 500 MG ER TABLET PO SCH (20:32)
[2017-01-13] MEDS: NALTREXONE HCL 50 MG TABLET PO SCH (08:05)
[2017-01-13] MEDS: TOPIRAMATE 100 MG TABLET PO SCH ×2 (08:05→16:19)
[2017-01-13] MEDS: FLUoxetine HCL 20 MG CAPSULE PO SCH (08:05)
[2017-01-13] MEDS: CHOLECALCIFEROL (VIT D3) 1,000 UNITS TABLET PO SCH (08:05)
[2017-01-13 08:20] VITALS: BP 128/70
[2017-01-13 16:30] VITALS: BP 148/90
[2017-01-13] MEDS ORDERED: LORazepam 2 MG/ML VIAL IM ONE (18:45)
[2017-01-13] MEDS ORDERED: FluPHENAZine HCL 2.5 MG/ML INJ IM ONE (18:45)
[2017-01-13] MEDS ORDERED: DiphenhydrAMINE HCL 50 MG/ML VIAL IM ONE (18:45)
[2017-01-13 20:45] VITALS: BP 119/75
[2017-01-13] MEDS: CloZAPine 100 MG TABLET PO SCH (21:16)
[2017-01-13] MEDS: DIVALPROEX SODIUM 500 MG ER TABLET PO SCH (21:16)
[2017-01-14] MEDS: NALTREXONE HCL 50 MG TABLET PO SCH (10:02)
[2017-01-14] MEDS: TOPIRAMATE 100 MG TABLET PO SCH ×2 (10:03→16:54)
[2017-01-14] MEDS: CHOLECALCIFEROL (VIT D3) 1,000 UNITS TABLET PO SCH (10:10)
[2017-01-14] MEDS: FLUoxetine HCL 20 MG CAPSULE PO SCH (10:11)
[2017-01-14 16:30] VITALS: BP 129/84
[2017-01-14] MEDS: DIVALPROEX SODIUM 500 MG ER TABLET PO SCH (21:41)
[2017-01-14] MEDS: CloZAPine 100 MG TABLET PO SCH (21:42)
[2017-01-14] MEDS: ZOLPIDEM TARTRATE 10 MG TABLET PO PRN (22:35)
[2017-01-15] MEDS: CHOLECALCIFEROL (VIT D3) 1,000 UNITS TABLET PO SCH (09:00)
[2017-01-15] MEDS: FLUoxetine HCL 20 MG CAPSULE PO SCH (09:00)
[2017-01-15] MEDS: NALTREXONE HCL 50 MG TABLET PO SCH (09:00)
[2017-01-15 09:11] VITALS: BP 130/82
[2017-01-15] MEDS: TOPIRAMATE 100 MG TABLET PO SCH ×2 (09:45→16:20)
[2017-01-15 16:19] VITALS: BP 120/77
[2017-01-15] MEDS: DIVALPROEX SODIUM 500 MG ER TABLET PO SCH (22:00)
[2017-01-15] MEDS: CloZAPine 100 MG TABLET PO SCH (22:01)
[2017-01-16 08:48] VITALS: BP 114/71
[2017-01-16] MEDS: FLUoxetine HCL 20 MG CAPSULE PO SCH (08:52)
[2017-01-16] MEDS: NALTREXONE HCL 50 MG TABLET PO SCH (08:52)
[2017-01-16] MEDS: CHOLECALCIFEROL (VIT D3) 1,000 UNITS TABLET PO SCH (08:53)
[2017-01-16] MEDS: TOPIRAMATE 100 MG TABLET PO SCH ×2 (08:53→16:09)
[2017-01-16 16:21] VITALS: BP 122/79
[2017-01-16] MEDS: DIVALPROEX SODIUM 500 MG ER TABLET PO SCH (21:24)
[2017-01-16] MEDS: CloZAPine 100 MG TABLET PO SCH (21:24)
[2017-01-17] MEDS: CHOLECALCIFEROL (VIT D3) 1,000 UNITS TABLET PO SCH (10:56)
[2017-01-17] MEDS: TOPIRAMATE 100 MG TABLET PO SCH ×2 (10:56→15:53)
[2017-01-17] MEDS: FLUoxetine HCL 20 MG CAPSULE PO SCH (10:56)
[2017-01-17] MEDS: NALTREXONE HCL 50 MG TABLET PO SCH (10:56)
[2017-01-17 12:22] VITALS: BP 133/79
[2017-01-17 16:26] VITALS: BP 121/79
[2017-01-17] MEDS: LORazepam 2 MG TABLET PO PRN (16:39)
[2017-01-17] MEDS: DIVALPROEX SODIUM 500 MG ER TABLET PO SCH (19:58)
[2017-01-17] MEDS: CloZAPine 100 MG TABLET PO SCH (19:58)
[2017-01-18] MEDS: NALTREXONE HCL 50 MG TABLET PO SCH (11:19)
[2017-01-18] MEDS: CHOLECALCIFEROL (VIT D3) 1,000 UNITS TABLET PO SCH (11:20)
[2017-01-18] MEDS: TOPIRAMATE 100 MG TABLET PO SCH ×2 (11:20→16:13)
[2017-01-18] MEDS: FLUoxetine HCL 20 MG CAPSULE PO SCH (11:20)
[2017-01-18] MEDS: DIVALPROEX SODIUM 500 MG ER TABLET PO SCH (21:15)
[2017-01-18] MEDS: CloZAPine 100 MG TABLET PO SCH (21:15)
[2017-01-18 22:21] VITALS: BP 134/75
[2017-01-19 08:22] VITALS: BP 119/81
[2017-01-19] MEDS: FLUoxetine HCL 20 MG CAPSULE PO SCH (09:08)
[2017-01-19] MEDS: CHOLECALCIFEROL (VIT D3) 1,000 UNITS TABLET PO SCH (09:08)
[2017-01-19] MEDS: TOPIRAMATE 100 MG TABLET PO SCH ×2 (09:08→16:54)
[2017-01-19] MEDS: NALTREXONE HCL 50 MG TABLET PO SCH (09:08)
[2017-01-19] MEDS: LORazepam 2 MG TABLET PO PRN (18:17)
[2017-01-19] MEDS: QUEtiapine FUMARATE 100 MG TABLET PO PRN (18:18)
[2017-01-19] MEDS: DIVALPROEX SODIUM 500 MG ER TABLET PO SCH (20:15)
[2017-01-19] MEDS: CloZAPine 100 MG TABLET PO SCH (20:15)
[2017-01-20] MEDS: TOPIRAMATE 100 MG TABLET PO SCH ×2 (09:23→16:18)
[2017-01-20] MEDS: CHOLECALCIFEROL (VIT D3) 1,000 UNITS TABLET PO SCH (09:23)
[2017-01-20] MEDS: FLUoxetine HCL 20 MG CAPSULE PO SCH (09:23)
[2017-01-20] MEDS: NALTREXONE HCL 50 MG TABLET PO SCH (09:23)
[2017-01-20 09:36] VITALS: BP 127/85
[2017-01-20 16:00] VITALS: BP 128/78
[2017-01-20] MEDS: DIVALPROEX SODIUM 500 MG ER TABLET PO SCH (21:45)
[2017-01-20] MEDS: CloZAPine 100 MG TABLET PO SCH (21:45)
[2017-01-21] MEDS: FLUoxetine HCL 20 MG CAPSULE PO SCH (08:04)
[2017-01-21] MEDS: CHOLECALCIFEROL (VIT D3) 1,000 UNITS TABLET PO SCH (08:04)
[2017-01-21] MEDS: TOPIRAMATE 100 MG TABLET PO SCH ×2 (08:04→16:01)
[2017-01-21] MEDS: NALTREXONE HCL 50 MG TABLET PO SCH (08:04)
[2017-01-21 08:30] VITALS: BP 123/78
[2017-01-21] MEDS ORDERED: TOPI100 PO (12:12)
[2017-01-21] MEDS ORDERED: DIVA500T52 PO (12:12)
[2017-01-21] MEDS ORDERED: NALT50 PO (12:12)
[2017-01-21] MEDS ORDERED: CLOZ100 PO (12:12)
[2017-01-21] MEDS ORDERED: FLUO-191 PO (12:12)
[2017-01-21 16:00] VITALS: BP 145/95
[2017-01-21] MEDS: QUEtiapine FUMARATE 100 MG TABLET PO PRN (17:22)
[2017-01-21] MEDS: LORazepam 2 MG TABLET PO PRN (17:22)
[2017-01-21 18:09] LABS: BASOPHILS % (AUTO) 0.4 % (0.0-2.0); EOSINOPHILS % (AUTO) 0.9 % (1.0-6.0); HEMATOCRIT 41.1 % (41-53); HEMOGLOBIN 13.4 g/dL (13.5-17.5); LYMPHOCYTES # (AUTO) 2.5 K/uL (1.0-4.8); LYMPHOCYTES % (AUTO) 28.3 % (22.0-44.0); MEAN CORPUSCULAR HEMOGLOBIN 28.8 pg (26.0-34.0); MEAN CORPUSCULAR HGB CONC 32.7 G/dL (31.0-37.0); MEAN CORPUSCULAR VOLUME 88 fL (80-100); MONOCYTES % (AUTO) 11.6 % (2.0-9.0); NEUTROPHILS # (AUTO) 5.3 K/uL (1.8-7.7); NEUTROPHILS % (AUTO) 58.8 % (40.0-70.0); PLATELET COUNT (AUTO) 281 K/uL (150-450); RED BLOOD CELL COUNT(AUTO) 4.66 MIL/uL (4.50-5.90); RED CELL DISTRIBUTION WIDTH 13.4 % (11.5-14.5)
[2017-01-21] MEDS: ZOLPIDEM TARTRATE 10 MG TABLET PO PRN (20:25)
[2017-01-21] MEDS: DIVALPROEX SODIUM 500 MG ER TABLET PO SCH (20:26)
[2017-01-21] MEDS: CloZAPine 100 MG TABLET PO SCH (20:26)
[2017-01-22] MEDS: FLUoxetine HCL 20 MG CAPSULE PO SCH (10:39)
[2017-01-22] MEDS: TOPIRAMATE 100 MG TABLET PO SCH (10:39)
[2017-01-22] MEDS: NALTREXONE HCL 50 MG TABLET PO SCH (10:39)
== END 2017-01-22 11:20 | disposition home or self-care (01) | DRG 750 ==
LOC: EMS 19:01 → 3EC 21:15 → 3EI 12-31 18:05 → 3EC 01-06 15:26
PROVIDERS: ADMIT Psychiatry & Neurology Psychiatry; ATTEND Psychiatry & Neurology Psychiatry
DX: F20.0 Paranoid schizophrenia (principal); R45.851 Suicidal ideations; Z68.41 Body mass index [BMI] 40.0-44.9, adult; I10 Essential (primary) hypertension; E66.01 Morbid (severe) obesity due to excess calories; E78.00 Pure hypercholesterolemia, unspecified; R45.850 Homicidal ideations; F31.9 Bipolar disorder, unspecified; E55.9 Vitamin D deficiency, unspecified; F41.9 Anxiety disorder, unspecified; F15.90 Other stimulant use, unspecified, uncomplicated; F12.90 Cannabis use, unspecified, uncomplicated; F17.210 Nicotine dependence, cigarettes, uncomplicated; Z28.21 Immunization not carried out because of patient refusal; Z91.19 Patient's noncompliance with other medical treatment and regimen; Z88.8 Allergy status to other drugs, medicaments and biological substances; Z91.013 Allergy to seafood; Z91.018 Allergy to other foods; Z79.899 Other long term (current) drug therapy; Z98.890 Other specified postprocedural states; Z71.6 Tobacco abuse counseling; Z71.51 Drug abuse counseling and surveillance of drug abuser
CPT/HCPCS: 80159; 80332; 87081; 96372; 99285; G0480; J1200; J1630; J2060; J3486; J3490

== ENCOUNTER 2024-02-22 15:40 | Inpatient (IN) | payer MEDICAID, OTHER ==
[~2024-02-22] VITALS: Ht 190.5 cm; Wt 136.5 kg
[~2024-02-22 15:40] MED LIST changes: -BENZ1TAB10 PO; -CLOZ100 PO; +CLOZ100T12 PO; -DIVA500T52 PO; +DIVA500T53 PO; -DIVA500T69 PO; +FLUO-177 PO; -FLUO-191 PO; -NALT50 PO; +NALT50TA33 PO; -TOPI100 PO; +TOPI100T37 PO
[2024-02-22] MEDS: LORazepam 2 MG/ML VIAL IM ONE (16:15)
[2024-02-22 16:26] LABS: BASOPHILS % (AUTO) 0.4 % (0.0-2.0); EOSINOPHILS % (AUTO) 0 % (1.0-6.0); HEMATOCRIT 43.9 % (41-53); HEMOGLOBIN 14.5 g/dL (13.5-17.5); LYMPHOCYTES # (AUTO) 2.3 K/uL (1.0-4.8); LYMPHOCYTES % (AUTO) 34.6 % (22.0-44.0); MEAN CORPUSCULAR HEMOGLOBIN 29.5 pg (26.0-34.0); MEAN CORPUSCULAR HGB CONC 33.1 G/dL (31.0-37.0); MEAN CORPUSCULAR VOLUME 89 fL (80-100); MONOCYTES # (AUTO) 0.7 K/uL (0.1-1.0); MONOCYTES % (AUTO) 10.7 % (2.0-9.0); NEUTROPHILS # (AUTO) 3.6 K/uL (1.8-7.7); NEUTROPHILS % (AUTO) 54.3 % (40.0-70.0); PLATELET COUNT (AUTO) 290 K/uL (150-450); RED BLOOD CELL COUNT(AUTO) 4.93 MIL/uL (4.50-5.90); RED CELL DISTRIBUTION WIDTH 13.7 % (11.5-14.5); WHITE BLOOD COUNT (AUTO) 6.6 K/uL (4.5-11.0)
[2024-02-22 16:36] LABS: ANION GAP 10 mmol/L (8-16); CALCIUM, TOTAL 9.3 mg/dL (8.8-10.5); CARBON DIOXIDE 24 mmol/L (22-29); CHLORIDE 106 mmol/L (98-107); CREATININE 1.04 mg/dL (0.60-1.30); GLOMERULAR FILTR. RATE CALC > 60 mL/min (>60); GLUCOSE,RANDOM 115 mg/dL (70-110); POTASSIUM 4.3 mmol/L (3.5-5.1); SODIUM SERUM 140 mmol/L (136-145); UREA NITROGEN, BLOOD 13 mg/dL (7-18)
[2024-02-22 16:42] LABS: ALANINE AMINOTRANSFERASE 21 U/L (12-78); ALBUMIN 3.9 g/dL (3.4-5.0); ALKALINE PHOSPHATASE 94 U/L (46-116); ASPARTATE AMINOTRANSFERASE 16 U/L (15-37); BILIRUBIN,TOTAL 0.2 mg/dL (0.1-1.0); TOTAL PROTEIN, SERUM 7.6 g/dL (6.4-8.2)
[2024-02-22 16:47] LABS: ALCOHOL, BLOOD (SERUM) < 3 mg/dL (0-10)
[2024-02-22] MEDS: DiphenhydrAMINE HCL 25 MG CAPSULE PO ONE (19:33)
[2024-02-22 20:28] LABS: COVID AG,FIA SOURCE NASAL SWAB
[2024-02-22 20:46] LABS: SARS-COV2 (COVID) ANTIGEN,FIA Negative (Negative)
[2024-02-22 21:30] VITALS: BP 136/68; PULSE 101; RESP 18; TEMP 98.4
[2024-02-22 21:38] VITALS: BP 131/82; PULSE 101; RESP 18; TEMP 98.4; O2SAT 99
[2024-02-22 23:27] LABS: APPEARANCE,URINE CLEAR (CLEAR); BILIRUBIN,URINE NEGATIVE (NEGATIVE); COLOR,URINE YELLOW (YELLOW); GLUCOSE, URINE (UA) NEGATIVE (NEGATIVE); KETONES,URINE NEGATIVE (NEGATIVE); LEUKOCYTE ESTERASE ,URINE NEGATIVE (NEGATIVE); NITRATE,URINE NEGATIVE (NEGATIVE); OCCULT BLOOD,URINE NEGATIVE (NEGATIVE); PROTEIN,URINE 30-70 mg/dL (NEGATIVE); SPECIFIC GRAVITIY, URINE 1.025 (1.003-1.030); UROBILINOGEN,URINE <=1.0 mg/dL (<=1.0)
[2024-02-22 23:34] LABS: ALCOHOL, URINE DRUG SCREEN NEGATIVE (NEGATIVE); AMPHET/METH SCREEN,URINE NEGATIVE (NEGATIVE); BARBITURATE SCREEN, URINE NEGATIVE (NEGATIVE); BENZODIAZEPINES SCREEN,URINE NEGATIVE (NEGATIVE); CANNABINOID SCREEN,URINE NEGATIVE (NEGATIVE); COCAINE SCREEN,URINE NEGATIVE (NEGATIVE); METHADONE SCREEN, URINE NEGATIVE (NEGATIVE); OPIATE SCREEN,URINE NEGATIVE (NEGATIVE); PHENCYCLIDINE SCREEN,URINE NEGATIVE (NEGATIVE)
[2024-02-22] MEDS: LORazepam 2 MG TABLET PO PRN (23:58)
[2024-02-22] MEDS: ZOLPIDEM TARTRATE 10 MG TABLET PO PRN (23:58)
[2024-02-23] MEDS ORDERED: MAG HYDROX/ALUMINUM HYD/SIMETH ES 30 ML SUSPENSION UDCUP PO PRN (00:45)
[2024-02-23] MEDS ORDERED: ONDANSETRON HCL 4 MG TABLET PO PRN (00:45)
[2024-02-23] MEDS ORDERED: PETROLATUM,WHITE 28 GM JELLY TP PRN (00:45)
[2024-02-23] MEDS ORDERED: DOCUSATE SODIUM 100 MG CAPSULE PO PRN (00:45)
[2024-02-23] MEDS ORDERED: NICOTINE 14 MG/24 HOUR PATCH TD PRN (00:45)
[2024-02-23] MEDS ORDERED: MAGNESIUM HYDROXIDE SUSPENSION 30 ML UDCUP PO PRN (00:45)
[2024-02-23] MEDS ORDERED: ALBUTEROL SULFATE HFA 90 MCG/PUFF 8 GM INHALER IH PRN (00:45)
[2024-02-23] MEDS ORDERED: LOPERAMIDE HCL 2 MG CAPSULE PO PRN (00:45)
[2024-02-23] MEDS ORDERED: GuaiFENesin/D-METHORPHAN [SUGAR-FREE] 200-20MG/10 ML SYRUP UDCUP PO PRN (00:45)
[2024-02-23] MEDS ORDERED: CloNIDine HCL 0.1 MG TABLET PO PRN (00:45)
[2024-02-23] MEDS: FLUoxetine HCL 20 MG CAPSULE PO SCH (13:19)
[2024-02-23] MEDS: NALTREXONE HCL 50 MG TABLET PO SCH (13:20)
[2024-02-23 16:24] VITALS: BP 135/76; PULSE 99; RESP 19; TEMP 98; O2SAT 97
[2024-02-23] MEDS: TOPIRAMATE 100 MG TABLET PO SCH (16:45)
[2024-02-23] MEDS: NICOTINE POLACRILEX 2 MG LOZENGE PO PRN (16:45)
[2024-02-23] MEDS: OLANZapine 5 MG RAPDIS TABLET PO PRN (16:45)
[2024-02-23 18:12] VITALS: RESP 18
[2024-02-23 20:22] VITALS: BP 129/76; PULSE 101; RESP 20; TEMP 97.8
[2024-02-23] MEDS: CloZAPine 100 MG TABLET PO SCH (20:36)
[2024-02-23] MEDS: DIVALPROEX SODIUM 500 MG ER TABLET PO SCH (20:36)
[2024-02-23 21:00] VITALS: BP 129/76; PULSE 101; RESP 18; TEMP 97.8; O2SAT 99
[2024-02-24 08:51] VITALS: BP 125/78; PULSE 76; RESP 17; TEMP 97.9
[2024-02-24 11:50] VITALS: BP 142/80; PULSE 81; RESP 18; TEMP 98; O2SAT 98
[2024-02-24 20:35] VITALS: BP 125/87; PULSE 101; RESP 18; TEMP 97.8; O2SAT 99
[2024-02-24] MEDS: IBUPROFEN 400 MG TABLET PO PRN (20:38)
[2024-02-24 20:49] VITALS: BP 125/87; PULSE 101; RESP 18; TEMP 97.8; O2SAT 99
[2024-02-24 21:38] VITALS: RESP 18
[2024-02-25] VITALS: BP 132/77; PULSE 95; RESP 18; TEMP 97.4; O2SAT 97
[2024-02-25] MEDS: ACETAMINOPHEN 325 MG TABLET PO PRN (00:03)
[2024-02-25 01:03] VITALS: RESP 18
[2024-02-25 12:34] VITALS: BP 128/92; PULSE 103; RESP 18; TEMP 97.5; O2SAT 98
[2024-02-25 21:09] VITALS: BP 136/88; PULSE 100; RESP 18; TEMP 98.9; O2SAT 96
[2024-02-26 04:40] VITALS: BP 137/75; PULSE 110; RESP 19; TEMP 97.1; O2SAT 99
[2024-02-26 05:40] VITALS: RESP 18; TEMP 97.5
[2024-02-26 08:30] VITALS: BP 123/85; PULSE 100; RESP 18; TEMP 97.5; O2SAT 98
[2024-02-26] MEDS: BENZTROPINE MESYLATE 1 MG TABLET PO SCH (16:48)
[2024-02-26 20:56] VITALS: BP 139/83; PULSE 74; RESP 19; TEMP 97.9; O2SAT 99
[2024-02-27 13:57] VITALS: BP 129/96; PULSE 112; RESP 18; O2SAT 100
[2024-02-27 14:26] VITALS: BP 128/86; PULSE 110; RESP 18; TEMP 97.6; O2SAT 100
[2024-02-27] MEDS ORDERED: BENZ1TAB84 PO (16:18)
[2024-02-27 21:11] VITALS: BP 137/83; PULSE 114; RESP 18; TEMP 97.3; O2SAT 98
[2024-02-28 12:59] VITALS: BP 139/100; PULSE 101; RESP 18; TEMP 97.8; O2SAT 100
== END 2024-02-28 14:00 | DRG 750 ==
LOC: EMS 15:40 → 3EI 17:43
PROVIDERS: ADMIT Psychiatry & Neurology Child & Adolescent Psychiatry; ATTEND Psychiatry & Neurology Child & Adolescent Psychiatry
PROC: GZHZZZZ Group Psychotherapy (ICD-10-PCS; principal; 2024-02-23)
PROC: GZ51ZZZ Individual Psychotherapy, Behavioral (ICD-10-PCS; 2024-02-23)
DX: F20.0 Paranoid schizophrenia (principal); R45.851 Suicidal ideations; E66.01 Morbid (severe) obesity due to excess calories; I10 Essential (primary) hypertension; Z87.891 Personal history of nicotine dependence; R00.0 Tachycardia, unspecified; Z20.822 Contact with and (suspected) exposure to COVID-19; F12.90 Cannabis use, unspecified, uncomplicated; R73.9 Hyperglycemia, unspecified; Z91.013 Allergy to seafood; Z88.8 Allergy status to other drugs, medicaments and biological substances; Z91.018 Allergy to other foods; Z68.37 Body mass index [BMI] 37.0-37.9, adult
CPT/HCPCS: 80053; 80164; 80307; 81003; 85025; 87081; 99285; G0480; Q9967

== ENCOUNTER 2024-07-19 20:56 | Emergency (ER) | payer MEDICAID, OTHER ==
[~2024-07-19] VITALS: Ht 190.5 cm; Wt 120.9 kg
[~2024-07-19 20:56] MED LIST changes: +AMLO5TAB66 PO; +ATOR20TA65 PO; +BENZ-247 PO; +DIVA-153 PO; -DIVA500T53 PO; +METF-844 PO
[2024-07-19 21:25] VITALS: TEMP 97.5
[2024-07-19 21:34] LABS: BASOPHILS % (AUTO) 0.4 % (0.0-2.0); EOSINOPHILS % (AUTO) 0 % (1.0-6.0); HEMATOCRIT 40.1 % (41-53); HEMOGLOBIN 12.9 g/dL (13.5-17.5); LYMPHOCYTES # (AUTO) 2.3 K/uL (1.0-4.8); LYMPHOCYTES % (AUTO) 35.4 % (22.0-44.0); MEAN CORPUSCULAR HEMOGLOBIN 29.1 pg (26.0-34.0); MEAN CORPUSCULAR HGB CONC 32.2 G/dL (31.0-37.0); MEAN CORPUSCULAR VOLUME 90 fL (80-100); MONOCYTES # (AUTO) 0.6 K/uL (0.1-1.0); MONOCYTES % (AUTO) 9.6 % (2.0-9.0); NEUTROPHILS # (AUTO) 3.5 K/uL (1.8-7.7); NEUTROPHILS % (AUTO) 54.6 % (40.0-70.0); PLATELET COUNT (AUTO) 260 K/uL (150-450); RED BLOOD CELL COUNT(AUTO) 4.44 MIL/uL (4.50-5.90); RED CELL DISTRIBUTION WIDTH 13.9 % (11.5-14.5); WHITE BLOOD COUNT (AUTO) 6.4 K/uL (4.5-11.0)
[2024-07-19] MEDS ORDERED: PRAZ2 PO (21:34)
[2024-07-19] MEDS ORDERED: CHOL200059 PO (21:34)
[2024-07-19] MEDS ORDERED: MULT-1366 PO (21:34)
[2024-07-19] MEDS ORDERED: LITH600C5 PO (21:34)
[2024-07-19] MEDS ORDERED: FOLI-130 PO (21:34)
[2024-07-19] MEDS ORDERED: SENN-376 PO (21:34)
[2024-07-19] MEDS ORDERED: METO25 PO (21:34)
[2024-07-19 21:48] LABS: ANION GAP 9 mmol/L (8-16); CARBON DIOXIDE 24 mmol/L (22-29); CHLORIDE 105 mmol/L (98-107); CREATININE 1.02 mg/dL (0.60-1.30); GLOMERULAR FILTR. RATE CALC > 60 mL/min (>60); GLUCOSE,RANDOM 84 mg/dL (70-110); SODIUM SERUM 138 mmol/L (136-145); UREA NITROGEN, BLOOD 13 mg/dL (7-18)
[2024-07-19 22:15] LABS: LITHIUM 0.41 mmol/L (0.60-1.20)
[2024-07-19 22:17] LABS: ALCOHOL, BLOOD (SERUM) < 3 mg/dL (0-10)
[2024-07-19 23:59] LABS: COVID AG,FIA SOURCE NASAL SWAB
[2024-07-20 00:22] LABS: ALCOHOL, URINE DRUG SCREEN NEGATIVE (NEGATIVE); AMPHET/METH SCREEN,URINE NEGATIVE (NEGATIVE); BARBITURATE SCREEN, URINE NEGATIVE (NEGATIVE); BENZODIAZEPINES SCREEN,URINE NEGATIVE (NEGATIVE); CANNABINOID SCREEN,URINE NEGATIVE (NEGATIVE); COCAINE SCREEN,URINE NEGATIVE (NEGATIVE); METHADONE SCREEN, URINE NEGATIVE (NEGATIVE); OPIATE SCREEN,URINE NEGATIVE (NEGATIVE); PHENCYCLIDINE SCREEN,URINE NEGATIVE (NEGATIVE)
[2024-07-20 00:30] LABS: SARS-COV2 (COVID) ANTIGEN,FIA Negative (Negative)
[2024-07-20] MEDS: DiphenhydrAMINE HCL 25 MG CAPSULE PO ONE (02:43)
[2024-07-20] MEDS: OLANZapine 10 MG TABLET PO ONE (02:43)
[2024-07-20 03:37] VITALS: BP 130/67; PULSE 97; RESP 16; O2SAT 98
[2024-07-20] MEDS ORDERED: DIVA-112 PO (11:57)
[2024-07-20] MEDS ORDERED: MIRA25TA5 PO (11:57)
== END 2024-07-20 03:53 ==
LOC: EMS 20:56
DX: F20.9 Schizophrenia, unspecified (principal); F31.9 Bipolar disorder, unspecified; E78.00 Pure hypercholesterolemia, unspecified; I10 Essential (primary) hypertension; F12.90 Cannabis use, unspecified, uncomplicated; F17.210 Nicotine dependence, cigarettes, uncomplicated; Z98.890 Other specified postprocedural states; Z91.013 Allergy to seafood; Z88.8 Allergy status to other drugs, medicaments and biological substances; Z20.822 Contact with and (suspected) exposure to COVID-19
CPT/HCPCS: 99284; 87426; 80048; 80178; 85025; 36415; 80307; G0480

== ENCOUNTER 2024-07-20 04:32 | Inpatient (IN) | payer MEDICAID, OTHER ==
[~2024-07-20] VITALS: Ht 190.5 cm; Wt 124.3 kg
[~2024-07-20 04:32] MED LIST changes: -BENZ-247 PO; +CHOL200059 PO; -DIVA-153 PO; +FOLI-130 PO; +LITH600C5 PO; +METO25 PO; +MULT-1366 PO; -NALT50TA33 PO; +PRAZ2 PO; +SENN-376 PO; -TOPI100T37 PO
[2024-07-20] MEDS: ChlorproMAZINE HCL 50 MG/2 ML AMP IM ONE (06:26)
[2024-07-20 09:02] VITALS: O2SAT 98
[2024-07-20] MEDS ORDERED: DIVA-112 PO (11:57)
[2024-07-20] MEDS ORDERED: MIRA25TA5 PO (11:57)
[2024-07-20 13:14] LABS: APPEARANCE,URINE CLEAR (CLEAR); BILIRUBIN,URINE NEGATIVE (NEGATIVE); COLOR,URINE LIGHT YELLOW (YELLOW); GLUCOSE, URINE (UA) NEGATIVE (NEGATIVE); KETONES,URINE NEGATIVE (NEGATIVE); LEUKOCYTE ESTERASE ,URINE NEGATIVE (NEGATIVE); NITRATE,URINE NEGATIVE (NEGATIVE); OCCULT BLOOD,URINE NEGATIVE (NEGATIVE); PROTEIN,URINE NEGATIVE (NEGATIVE); UROBILINOGEN,URINE <=1.0 mg/dL (<=1.0)
[2024-07-20] MEDS ORDERED: HydrOXYzine PAMOATE 50 MG CAPSULE PO PRN (13:30)
[2024-07-20] MEDS ORDERED: PROMETHAZINE HCL 25 MG TABLET PO PRN (13:30)
[2024-07-20] MEDS ORDERED: GuaiFENesin/D-METHORPHAN [SUGAR-FREE] 200-20MG/10 ML SYRUP UDCUP PO PRN (13:30)
[2024-07-20] MEDS ORDERED: MAG HYDROX/ALUMINUM HYD/SIMETH ES 30 ML SUSPENSION UDCUP PO PRN (13:30)
[2024-07-20] MEDS ORDERED: MAGNESIUM HYDROXIDE SUSPENSION 30 ML UDCUP PO PRN (13:30)
[2024-07-20] MEDS ORDERED: LOPERAMIDE HCL 2 MG CAPSULE PO PRN (13:30)
[2024-07-20 14:21] LABS: COVID AG,FIA SOURCE NASAL SWAB
[2024-07-20 14:48] LABS: SARS-COV2 (COVID) ANTIGEN,FIA Negative (Negative)
[2024-07-20 16:37] VITALS: BP 125/88; PULSE 99; RESP 17; TEMP 98.1; O2SAT 99
[2024-07-20] MEDS ORDERED: DEXTROSE 50%-WATER 25 GM/50 ML SYRINGE IVP PRN (17:15)
[2024-07-20] MEDS: MetFORMIN HCL 500 MG TABLET PO SCH (18:28)
[2024-07-20] MEDS: TOPIRAMATE 100 MG TABLET PO SCH (18:28)
[2024-07-20] MEDS: DIVALPROEX SODIUM 500 MG ER TABLET PO SCH (18:28)
[2024-07-20] MEDS: LITHIUM CARBONATE 300 MG CAPSULE PO SCH (18:28)
[2024-07-20] MEDS: THIAMINE 100 MG TABLET PO SCH (18:29)
[2024-07-20 19:56] VITALS: BP 123/90; PULSE 97; RESP 18; TEMP 96.6
[2024-07-20 20:35] VITALS: RESP 18
[2024-07-20] MEDS: MELATONIN 5 MG TABLET PO SCH (21:04)
[2024-07-20] MEDS: CloZAPine 100 MG TABLET PO SCH (21:04)
[2024-07-20] MEDS: PRAZOSIN HCL 2 MG CAPSULE PO SCH (21:04)
[2024-07-20 21:40] LABS: GLUCOMETER DEV NAME(LOC) 3E.C; GLUCOSE,POINT OF CARE 100 MG/DL (70-110)
[2024-07-21 06:45] LABS: GLUCOMETER DEV NAME(LOC) 3E.C; GLUCOSE,POINT OF CARE 100 MG/DL (70-110)
[2024-07-21] MEDS: INSULIN LISPRO 100 UNITS/ML SQ PRN (07:10)
[2024-07-21 07:36] LABS: LITHIUM 0.27 mmol/L (0.60-1.20)
[2024-07-21 07:52] LABS: CHOL/HDL RATIO 2.9 (4.2-7.3); FREE T4 (FREE THYROXINE) 0.83 ng/dL (0.76-1.46); THYROID STIMULATING HORMONE 0.8 uIU/mL (0.36-3.74)
[2024-07-21] MEDS: FLUoxetine HCL 20 MG CAPSULE PO SCH (08:36)
[2024-07-21] MEDS: FOLIC ACID 1 MG TABLET PO SCH (08:36)
[2024-07-21] MEDS: MULTIVITAMINS WITH MINERALS, THERAPEUTIC TABLET PO SCH (08:36)
[2024-07-21] MEDS: AmLODIPine BESYLATE 5 MG TABLET PO SCH (08:36)
[2024-07-21] MEDS: ATORVASTATIN CALCIUM 20 MG TABLET PO SCH (08:36)
[2024-07-21] MEDS: NALTREXONE HCL 50 MG TABLET PO SCH (08:37)
[2024-07-21 13:12] VITALS: RESP 18
[2024-07-21 15:22] VITALS: BP 118/79; PULSE 89; RESP 18; TEMP 97.9; O2SAT 98
[2024-07-21] MEDS: ACETAMINOPHEN 325 MG TABLET PO PRN (15:22)
[2024-07-21] MEDS: LITHIUM CARBONATE 300 MG CAPSULE PO SCH (16:56)
[2024-07-21 17:45] LABS: GLUCOMETER DEV NAME(LOC) 3E.C; GLUCOSE,POINT OF CARE 124 MG/DL (70-110)
[2024-07-21 20:38] VITALS: BP 144/84; PULSE 119; RESP 18; TEMP 96.6; O2SAT 98
[2024-07-21 21:11] VITALS: BP 144/84; PULSE 119; RESP 19; TEMP 96.6; O2SAT 98
[2024-07-21 22:11] VITALS: RESP 18
[2024-07-22 06:50] LABS: GLUCOMETER DEV NAME(LOC) 3E.C; GLUCOSE,POINT OF CARE 122 MG/DL (70-110)
[2024-07-22 09:30] VITALS: BP 98/61; PULSE 99; RESP 16; TEMP 97.2; O2SAT 95
[2024-07-22 21:52] VITALS: BP 129/97; PULSE 100; RESP 18; TEMP 97.9; O2SAT 100
[2024-07-23] MEDS: LORazepam 2 MG TABLET PO PRN (14:19)
[2024-07-23 14:47] VITALS: BP 113/79; PULSE 88; RESP 18; TEMP 96.6; O2SAT 98
[2024-07-23 17:00] LABS: GLUCOMETER DEV NAME(LOC) 3E.C; GLUCOSE,POINT OF CARE 109 MG/DL (70-110)
[2024-07-23 21:42] VITALS: BP 125/80; PULSE 109; RESP 19; TEMP 97.8; O2SAT 98
[2024-07-24 06:55] LABS: GLUCOMETER DEV NAME(LOC) 3E.C; GLUCOSE,POINT OF CARE 93 MG/DL (70-110)
[2024-07-24 13:52] VITALS: RESP 18
[2024-07-24 17:03] VITALS: BP 122/88; PULSE 99; RESP 18; O2SAT 98
[2024-07-24 17:35] LABS: GLUCOMETER DEV NAME(LOC) 3E.C; GLUCOSE,POINT OF CARE 84 MG/DL (70-110)
[2024-07-24 23:22] VITALS: RESP 18
[2024-07-24] MEDS: OLANZapine 5 MG RAPDIS TABLET PO PRN (23:59)
[2024-07-24] MEDS: ZOLPIDEM TARTRATE 10 MG TABLET PO PRN (23:59)
[2024-07-25 06:15] LABS: GLUCOMETER DEV NAME(LOC) 3E.C; GLUCOSE,POINT OF CARE 109 MG/DL (70-110)
[2024-07-25 09:39] VITALS: BP 153/66; PULSE 70; RESP 19; TEMP 97.7; O2SAT 98
[2024-07-25 12:06] LABS: TOPIRAMATE (TOPAMAX) LEVEL 4.4 ug/mL (2.0-25.0)
[2024-07-25 17:05] LABS: GLUCOMETER DEV NAME(LOC) 3E.C; GLUCOSE,POINT OF CARE 104 MG/DL (70-110)
[2024-07-25] MEDS: DiphenhydrAMINE HCL 50 MG/ML VIAL IM ONE (17:24)
[2024-07-25] MEDS: ChlorproMAZINE HCL 50 MG/2 ML AMP IM ONE (17:24)
[2024-07-25] MEDS: LORazepam 2 MG/ML VIAL IM ONE (17:25)
[2024-07-25] MEDS: LITHIUM CARBONATE 300 MG CAPSULE PO SCH (18:09)
[2024-07-25] MEDS: LITHIUM CITRATE SOLUTION 8 MEQ/5 ML [8 MEQ = 300 MG] UDCUP PO SCH (20:21)
[2024-07-25 20:44] VITALS: RESP 18
[2024-07-26 05:31] LABS: GLUCOMETER DEV NAME(LOC) 3E.C; GLUCOSE,POINT OF CARE 118 MG/DL (70-110)
[2024-07-26] MEDS: TRIHEXYPHENIDYL HCL 2 MG TABLET PO SCH (12:45)
[2024-07-26 17:39] VITALS: RESP 18
[2024-07-26 18:06] LABS: GLUCOMETER DEV NAME(LOC) 3E.C; GLUCOSE,POINT OF CARE 87 MG/DL (70-110)
[2024-07-26] MEDS: PARoxetine HCL 20 MG TABLET PO SCH (20:35)
[2024-07-26 22:22] VITALS: RESP 17
[2024-07-27 06:30] LABS: GLUCOMETER DEV NAME(LOC) 3E.C; GLUCOSE,POINT OF CARE 98 MG/DL (70-110)
[2024-07-27 07:26] LABS: BASOPHILS % (AUTO) 0.2 % (0.0-2.0); EOSINOPHILS % (AUTO) 0 % (1.0-6.0); HEMATOCRIT 41.6 % (41-53); HEMOGLOBIN 13.7 g/dL (13.5-17.5); LYMPHOCYTES # (AUTO) 3.1 K/uL (1.0-4.8); LYMPHOCYTES % (AUTO) 42.3 % (22.0-44.0); MEAN CORPUSCULAR VOLUME 91 fL (80-100); MONOCYTES # (AUTO) 0.7 K/uL (0.1-1.0); NEUTROPHILS # (AUTO) 3.5 K/uL (1.8-7.7); NEUTROPHILS % (AUTO) 47.5 % (40.0-70.0); PLATELET COUNT (AUTO) 334 K/uL (150-450); RED BLOOD CELL COUNT(AUTO) 4.58 MIL/uL (4.50-5.90); RED CELL DISTRIBUTION WIDTH 13.7 % (11.5-14.5); WHITE BLOOD COUNT (AUTO) 7.4 K/uL (4.5-11.0)
[2024-07-27] MEDS: FluPHENAZine HCL 10 MG TABLET PO SCH (08:08)
[2024-07-27] MEDS: GABAPENTIN 300 MG CAPSULE PO PRN (08:09)
[2024-07-27 08:52] VITALS: BP 126/86; PULSE 100; RESP 18; TEMP 97.2; O2SAT 100
[2024-07-27 09:07] LABS: CLOZAPINE & NORCLOZAPINE 827 ng/mL; NORCLOZAPINE 191 ng/mL (Not Estab.)
[2024-07-27 20:14] VITALS: BP 148/78; PULSE 99; RESP 18; TEMP 98.2; O2SAT 99
[2024-07-28] MEDS: FluPHENAZine HCL 10 MG TABLET PO SCH (08:50)
[2024-07-28 11:15] VITALS: RESP 18
[2024-07-28 21:43] VITALS: BP 131/89; PULSE 90; RESP 18; TEMP 97.2; O2SAT 97
[2024-07-28] MEDS: PARoxetine HCL 20 MG TABLET PO SCH (22:03)
[2024-07-29 07:20] LABS: GLUCOMETER DEV NAME(LOC) 3E.C; GLUCOSE,POINT OF CARE 115 MG/DL (70-110)
[2024-07-29 08:00] VITALS: BP 136/93; PULSE 78; RESP 20; TEMP 98
[2024-07-29] MEDS: NICOTINE POLACRILEX 2 MG LOZENGE PO PRN (16:23)
[2024-07-29 18:00] LABS: GLUCOMETER DEV NAME(LOC) 3E.C; GLUCOSE,POINT OF CARE 97 MG/DL (70-110)
[2024-07-29] MEDS: GuanFACINE HCL 1 MG TABLET PO SCH (18:20)
[2024-07-29 19:21] LABS: T4 (THYROXINE) 8.9 mcg/dL (4.7-13.3); THYROID STIMULATING HORMONE 1.3 uIU/mL (0.36-3.74)
[2024-07-29 19:27] LABS: LITHIUM 0.55 mmol/L (0.60-1.20)
[2024-07-29 23:01] VITALS: BP 121/83; PULSE 101; RESP 20; TEMP 97.1; O2SAT 99
[2024-07-30 05:26] LABS: GLUCOMETER DEV NAME(LOC) 3E.C; GLUCOSE,POINT OF CARE 82 MG/DL (70-110)
[2024-07-30] MEDS: ATOMOXETINE HCL 10 MG CAPSULE PO SCH (08:14)
[2024-07-30 08:30] VITALS: BP 126/85; PULSE 94; RESP 19; TEMP 97.5; O2SAT 98
[2024-07-30 18:16] LABS: GLUCOMETER DEV NAME(LOC) 3E.C; GLUCOSE,POINT OF CARE 99 MG/DL (70-110)
[2024-07-30 20:29] VITALS: BP 99/62; PULSE 99; RESP 18; TEMP 97.1; O2SAT 98
[2024-07-30] MEDS: IMIPRAMINE HCL 10 MG TABLET PO SCH (21:36)
[2024-07-31 06:01] LABS: GLUCOMETER DEV NAME(LOC) 3E.C; GLUCOSE,POINT OF CARE 80 MG/DL (70-110)
[2024-07-31 20:45] VITALS: BP 113/71; PULSE 91; RESP 18; TEMP 97.4
[2024-08-01 06:16] LABS: GLUCOMETER DEV NAME(LOC) 3E.C; GLUCOSE,POINT OF CARE 97 MG/DL (70-110)
[2024-08-01 10:23] VITALS: RESP 18
[2024-08-01 17:55] LABS: GLUCOMETER DEV NAME(LOC) 3E.C; GLUCOSE,POINT OF CARE 151 MG/DL (70-110)
[2024-08-01 21:49] VITALS: BP 132/62; PULSE 92; RESP 18; TEMP 98.1; O2SAT 98
[2024-08-02 06:40] LABS: GLUCOMETER DEV NAME(LOC) 3E.C; GLUCOSE,POINT OF CARE 78 MG/DL (70-110)
[2024-08-02 13:39] VITALS: BP 107/66; PULSE 84; RESP 18; TEMP 98; O2SAT 100
[2024-08-02 17:56] LABS: GLUCOMETER DEV NAME(LOC) 3E.C; GLUCOSE,POINT OF CARE 72 MG/DL (70-110)
[2024-08-02 20:44] VITALS: BP 138/89; PULSE 90; RESP 18; TEMP 98; O2SAT 96
[2024-08-02] MEDS: PARoxetine HCL 20 MG TABLET PO SCH (20:44)
[2024-08-03 06:45] LABS: GLUCOMETER DEV NAME(LOC) 3E.C; GLUCOSE,POINT OF CARE 85 MG/DL (70-110)
[2024-08-03 09:59] VITALS: BP 128/80; PULSE 93; RESP 18; TEMP 98; O2SAT 98
[2024-08-03 12:35] VITALS: BP 114/62; PULSE 83; RESP 18
[2024-08-03 18:01] LABS: GLUCOMETER DEV NAME(LOC) 3E.C; GLUCOSE,POINT OF CARE 110 MG/DL (70-110)
[2024-08-03 20:19] VITALS: BP 129/87; PULSE 87; RESP 18; TEMP 97.8; O2SAT 98
[2024-08-04 07:10] LABS: GLUCOMETER DEV NAME(LOC) 3E.C; GLUCOSE,POINT OF CARE 78 MG/DL (70-110)
[2024-08-04] MEDS: LITHIUM CARBONATE 300 MG CAPSULE PO SCH (09:08)
[2024-08-04 09:14] VITALS: BP 95/55; PULSE 95; RESP 17; TEMP 98.1; O2SAT 96
[2024-08-04 12:30] VITALS: BP 118/78; PULSE 88; RESP 18
[2024-08-04 15:34] LABS: BASOPHILS % (AUTO) 0.5 % (0.0-2.0); EOSINOPHILS % (AUTO) 0 % (1.0-6.0); HEMATOCRIT 38.8 % (41-53); HEMOGLOBIN 12.5 g/dL (13.5-17.5); LYMPHOCYTES # (AUTO) 2.3 K/uL (1.0-4.8); LYMPHOCYTES % (AUTO) 36.5 % (22.0-44.0); MEAN CORPUSCULAR HEMOGLOBIN 29.6 pg (26.0-34.0); MEAN CORPUSCULAR HGB CONC 32.3 G/dL (31.0-37.0); MEAN CORPUSCULAR VOLUME 92 fL (80-100); MONOCYTES # (AUTO) 0.6 K/uL (0.1-1.0); MONOCYTES % (AUTO) 9.8 % (2.0-9.0); NEUTROPHILS # (AUTO) 3.3 K/uL (1.8-7.7); NEUTROPHILS % (AUTO) 53.2 % (40.0-70.0); PLATELET COUNT (AUTO) 298 K/uL (150-450); RED BLOOD CELL COUNT(AUTO) 4.23 MIL/uL (4.50-5.90); RED CELL DISTRIBUTION WIDTH 13.9 % (11.5-14.5); WHITE BLOOD COUNT (AUTO) 6.2 K/uL (4.5-11.0)
[2024-08-04 15:53] LABS: RBC MORPHOLOGY COMMENT NORMAL RBC MORPH
[2024-08-04 16:59] VITALS: BP 100/65; PULSE 102; RESP 18
[2024-08-04 17:11] LABS: GLUCOMETER DEV NAME(LOC) 3E.C; GLUCOSE,POINT OF CARE 151 MG/DL (70-110)
[2024-08-04 20:50] VITALS: BP 104/64; PULSE 86; RESP 18; TEMP 98.2; O2SAT 97
[2024-08-04] MEDS: PARoxetine HCL 10 MG TABLET PO SCH (21:42)
[2024-08-04] MEDS: NICOTINE POLACRILEX 2 MG LOZENGE PO PRN (21:46)
[2024-08-05 06:31] LABS: GLUCOMETER DEV NAME(LOC) 3E.C; GLUCOSE,POINT OF CARE 80 MG/DL (70-110)
[2024-08-05 08:49] VITALS: BP 136/84; PULSE 80; RESP 18; TEMP 97.4; O2SAT 100
[2024-08-05] MEDS: TRIHEXYPHENIDYL HCL 2 MG TABLET PO SCH (09:00)
[2024-08-05] MEDS: LORazepam 2 MG/ML VIAL IM ONE (09:27)
[2024-08-05] MEDS: FluPHENAZine HCL 2.5 MG/ML INJ IM ONE (09:27)
[2024-08-05] MEDS: DiphenhydrAMINE HCL 50 MG/ML VIAL IM ONE (09:28)
[2024-08-05 17:56] LABS: GLUCOMETER DEV NAME(LOC) 3E.C; GLUCOSE,POINT OF CARE 87 MG/DL (70-110)
[2024-08-05 20:50] VITALS: BP 140/83; PULSE 97; RESP 18; TEMP 98.1; O2SAT 97
[2024-08-06 06:21] LABS: GLUCOMETER DEV NAME(LOC) 3E.C; GLUCOSE,POINT OF CARE 114 MG/DL (70-110)
[2024-08-06 10:00] VITALS: BP 150/91; PULSE 95; RESP 17; TEMP 97.8; O2SAT 98
[2024-08-06 16:35] LABS: GLUCOMETER DEV NAME(LOC) 3E.C; GLUCOSE,POINT OF CARE 84 MG/DL (70-110)
[2024-08-06 23:46] VITALS: BP 135/87; PULSE 91; RESP 18; TEMP 97.7; O2SAT 97
[2024-08-07 06:31] LABS: GLUCOMETER DEV NAME(LOC) 3E.I 2; GLUCOSE,POINT OF CARE 75 MG/DL (70-110)
[2024-08-07 08:30] VITALS: BP 138/84; PULSE 87; RESP 17; TEMP 97.6; O2SAT 96
[2024-08-07 17:10] LABS: GLUCOMETER DEV NAME(LOC) 3E.C; GLUCOSE,POINT OF CARE 186 MG/DL (70-110)
[2024-08-07 21:17] VITALS: BP 105/72; PULSE 91; RESP 18; TEMP 97.9; O2SAT 97
[2024-08-08 06:45] LABS: GLUCOMETER DEV NAME(LOC) 3E.C; GLUCOSE,POINT OF CARE 89 MG/DL (70-110)
[2024-08-08 10:25] VITALS: BP 117/66; PULSE 111; RESP 18; TEMP 97.6; O2SAT 97
[2024-08-08 16:55] LABS: GLUCOMETER DEV NAME(LOC) 3E.C; GLUCOSE,POINT OF CARE 95 MG/DL (70-110)
[2024-08-08 21:25] VITALS: BP 109/75; PULSE 80; RESP 18; TEMP 98; O2SAT 98
[2024-08-09 06:35] LABS: GLUCOMETER DEV NAME(LOC) 3E.C; GLUCOSE,POINT OF CARE 89 MG/DL (70-110)
[2024-08-09 10:05] VITALS: BP 107/62; PULSE 74; RESP 18; TEMP 97.5; O2SAT 97
[2024-08-09 18:01] LABS: GLUCOMETER DEV NAME(LOC) 3E.C; GLUCOSE,POINT OF CARE 143 MG/DL (70-110)
[2024-08-09 20:41] VITALS: BP 132/82; PULSE 97; RESP 18; TEMP 98.1; O2SAT 98
[2024-08-10 06:41] LABS: GLUCOMETER DEV NAME(LOC) 3E.C; GLUCOSE,POINT OF CARE 101 MG/DL (70-110)
[2024-08-10 08:55] VITALS: BP 126/75; PULSE 78; RESP 20; TEMP 98.3; O2SAT 97
[2024-08-10 16:51] LABS: GLUCOMETER DEV NAME(LOC) 3E.C; GLUCOSE,POINT OF CARE 139 MG/DL (70-110)
[2024-08-10 22:13] VITALS: BP 145/87; PULSE 85; RESP 18; O2SAT 98
[2024-08-11 06:41] LABS: GLUCOMETER DEV NAME(LOC) 3E.C; GLUCOSE,POINT OF CARE 83 MG/DL (70-110)
[2024-08-11 07:24] LABS: BASOPHILS % (AUTO) 0.7 % (0.0-2.0); EOSINOPHILS % (AUTO) 0 % (1.0-6.0); HEMATOCRIT 38.4 % (41-53); HEMOGLOBIN 12.6 g/dL (13.5-17.5); LYMPHOCYTES # (AUTO) 2.7 K/uL (1.0-4.8); MEAN CORPUSCULAR HEMOGLOBIN 30.3 pg (26.0-34.0); MEAN CORPUSCULAR HGB CONC 32.9 G/dL (31.0-37.0); MEAN CORPUSCULAR VOLUME 92 fL (80-100); MONOCYTES # (AUTO) 0.8 K/uL (0.1-1.0); MONOCYTES % (AUTO) 11.8 % (2.0-9.0); NEUTROPHILS # (AUTO) 3.5 K/uL (1.8-7.7); NEUTROPHILS % (AUTO) 49.5 % (40.0-70.0); PLATELET COUNT (AUTO) 276 K/uL (150-450); RED BLOOD CELL COUNT(AUTO) 4.17 MIL/uL (4.50-5.90); RED CELL DISTRIBUTION WIDTH 14.1 % (11.5-14.5); WHITE BLOOD COUNT (AUTO) 7.1 K/uL (4.5-11.0)
[2024-08-11 08:34] VITALS: BP 150/83; PULSE 83; RESP 20; TEMP 97.9; O2SAT 98
[2024-08-11] MEDS: TUBERCULIN, PURIFIED PROTEIN DERIVATIVE 5 TU/0.1 ML SYRINGE ID ONE (14:32)
[2024-08-11 16:41] LABS: GLUCOMETER DEV NAME(LOC) 3E.C; GLUCOSE,POINT OF CARE 133 MG/DL (70-110)
[2024-08-11 22:33] VITALS: BP 108/77; PULSE 108; RESP 19; TEMP 98.1; O2SAT 98
[2024-08-12 06:56] LABS: GLUCOMETER DEV NAME(LOC) 3E.C; GLUCOSE,POINT OF CARE 100 MG/DL (70-110)
[2024-08-12 10:12] VITALS: BP 97/60; PULSE 100; RESP 16; TEMP 97.5; O2SAT 96
[2024-08-12 17:25] LABS: GLUCOMETER DEV NAME(LOC) 3E.C; GLUCOSE,POINT OF CARE 112 MG/DL (70-110)
[2024-08-12 20:39] VITALS: BP 127/88; PULSE 90; RESP 18; TEMP 98.8; O2SAT 97
[2024-08-13 06:36] LABS: GLUCOMETER DEV NAME(LOC) 3E.C; GLUCOSE,POINT OF CARE 101 MG/DL (70-110)
[2024-08-13 09:31] VITALS: BP 104/63; PULSE 86; RESP 17; TEMP 97.9; O2SAT 99
[2024-08-13 16:35] LABS: GLUCOMETER DEV NAME(LOC) 3E.C; GLUCOSE,POINT OF CARE 132 MG/DL (70-110)
[2024-08-13 21:44] VITALS: BP 110/68; PULSE 88; RESP 18; TEMP 98
[2024-08-13] MEDS: PARoxetine HCL 20 MG TABLET PO SCH (21:49)
[2024-08-14 06:16] LABS: GLUCOMETER DEV NAME(LOC) 3E.C; GLUCOSE,POINT OF CARE 117 MG/DL (70-110)
[2024-08-14 09:07] VITALS: BP 95/57; PULSE 68; RESP 16; TEMP 97.3; O2SAT 97
[2024-08-14 09:19] VITALS: BP 129/74; PULSE 78; RESP 18; O2SAT 98
[2024-08-14 16:26] LABS: GLUCOMETER DEV NAME(LOC) 3E.C; GLUCOSE,POINT OF CARE 102 MG/DL (70-110)
[2024-08-14 20:27] VITALS: BP 125/70; PULSE 78; RESP 18; TEMP 97.5; O2SAT 99
[2024-08-15 06:45] LABS: GLUCOMETER DEV NAME(LOC) 3E.C; GLUCOSE,POINT OF CARE 88 MG/DL (70-110)
[2024-08-15 09:51] VITALS: BP 114/69; PULSE 75; RESP 18; TEMP 98.7; O2SAT 99
[2024-08-15 17:00] LABS: GLUCOMETER DEV NAME(LOC) 3E.C; GLUCOSE,POINT OF CARE 79 MG/DL (70-110)
[2024-08-15 20:34] VITALS: BP 108/72; PULSE 87; RESP 18; TEMP 97.1; O2SAT 97
[2024-08-16 06:16] LABS: GLUCOMETER DEV NAME(LOC) 3E.C; GLUCOSE,POINT OF CARE 101 MG/DL (70-110)
[2024-08-16 08:45] VITALS: BP 95/55; PULSE 79; RESP 18; TEMP 98.8; O2SAT 100
[2024-08-16 16:31] LABS: GLUCOMETER DEV NAME(LOC) 3E.C; GLUCOSE,POINT OF CARE 87 MG/DL (70-110)
[2024-08-16 20:30] VITALS: BP 105/65; PULSE 90; RESP 16; TEMP 97.2; O2SAT 100
[2024-08-17 06:45] LABS: GLUCOMETER DEV NAME(LOC) 3E.C; GLUCOSE,POINT OF CARE 120 MG/DL (70-110)
[2024-08-17 09:03] VITALS: BP 91/57; PULSE 96; RESP 16; TEMP 97.7; O2SAT 99
[2024-08-17] MEDS ORDERED: TRIH2TAB3 PO (10:57)
[2024-08-17] MEDS ORDERED: LITH300C3 PO (10:57)
[2024-08-17] MEDS ORDERED: FLUP10TA28 PO (10:57)
[2024-08-17] MEDS ORDERED: MELA5TAB40 PO (10:57)
[2024-08-17] MEDS ORDERED: GUAN1TAB2 PO (10:57)
[2024-08-17] MEDS ORDERED: NALT50TA33 PO (10:57)
[2024-08-17] MEDS ORDERED: DIVA-153 PO (10:57)
[2024-08-17] MEDS ORDERED: ATOM10CA4 PO (10:57)
[2024-08-17] MEDS ORDERED: CLOZ100T61 PO (10:57)
[2024-08-17] MEDS ORDERED: IMIP10TA PO (10:57)
[2024-08-17] MEDS ORDERED: TOPI100T37 PO (10:57)
[2024-08-17] MEDS ORDERED: PARO-37 PO (10:57)
[2024-08-17] MEDS ORDERED: PRAZ2 PO (10:57)
[2024-08-17 12:31] VITALS: BP 136/97; PULSE 100; RESP 18
[2024-08-17 16:15] VITALS: BP 114/78; PULSE 102; RESP 18; O2SAT 99
[2024-08-17 17:01] LABS: GLUCOMETER DEV NAME(LOC) 3E.C; GLUCOSE,POINT OF CARE 147 MG/DL (70-110)
[2024-08-17 20:16] VITALS: RESP 18
[2024-08-18 07:01] LABS: GLUCOMETER DEV NAME(LOC) 3E.C; GLUCOSE,POINT OF CARE 89 MG/DL (70-110)
[2024-08-18 08:14] VITALS: BP 95/59; PULSE 97; RESP 16; TEMP 98; O2SAT 99
== END 2024-08-18 12:32 | DRG 750 ==
LOC: EMS 04:32 → 3EC 15:15
PROVIDERS: ADMIT Psychiatry & Neurology Psychiatry; ATTEND Psychiatry & Neurology Psychiatry
PROC: GZHZZZZ Group Psychotherapy (ICD-10-PCS; principal; 2024-07-20)
PROC: GZ51ZZZ Individual Psychotherapy, Behavioral (ICD-10-PCS; 2024-07-20)
DX: F25.9 Schizoaffective disorder, unspecified (principal); E11.9 Type 2 diabetes mellitus without complications; D64.9 Anemia, unspecified; E78.00 Pure hypercholesterolemia, unspecified; F17.200 Nicotine dependence, unspecified, uncomplicated; E66.9 Obesity, unspecified; F43.10 Post-traumatic stress disorder, unspecified; I10 Essential (primary) hypertension; Z68.34 Body mass index [BMI] 34.0-34.9, adult; F32.A Depression, unspecified; F90.9 Attention-deficit hyperactivity disorder, unspecified type; J44.9 Chronic obstructive pulmonary disease, unspecified; N39.44 Nocturnal enuresis; Z78.1 Physical restraint status; Z91.52 Personal history of nonsuicidal self-harm
CPT/HCPCS: 80061; 80159; 80164; 80178; 80201; 81003; 82962; 83036; 84436; 84439; 84443; 85025; 86592; 87081; 99285; J1200; J2060; J3230; J3490